=== PATIENT | male | born 1960 | race Caucasian/White ===

== ENCOUNTER 2017-04-25 08:49 | Day surgery (SDC) | payer OTHER ==
[~2017-04-25 08:49] MED LIST: Lactated Ringers 1,000 ML IV SCH
--- NOTE | 2017-04-25 09:45 | PCM.PREANE ---
Preanesthetic Assessment - Anesthesia/Transfusion/Family Hx Anesthesia History: Prior Anesthesia Without Reaction Family History of Anesthesia Reaction: No Transfusion History: No Prior Transfusion(s) Intubation History: Unknown - Review of Systems General: No Symptoms Pulmonary: No Symptoms Cardiovascular: No Symptoms Gastrointestinal: No Symptoms Neurological: No Symptoms Other: Reports: None - Physical Assessment NPO Status Date: 04/24/17 NPO Status Time: 22:00 O2 Sat by Pulse Oximetry: 97 Respiratory Rate: 16 Vital Signs: Last Vital Signs Temp 36.1 C 04/25/17 09:21 Pulse 100 04/25/17 09:21 Resp 16 04/25/17 09:21 BP 124/66 04/25/17 09:21 Pulse Ox 97 04/25/17 09:21 Height: 1.83 m Weight: 134.717 kg ASA Class: 3 Mental Status: Alert & Oriented x3 Airway Class: Mallampati = 2 Dentition: Reports: Normal Dentition Thyro-Mental Finger Breadths: 3 Mouth Opening Finger Breadths: 3 ROM/Head Extension: Full Lungs: Clear to Auscultation, Normal Respiratory Effort Cardiovascular: Regular Rate, Regular Rhythm - Allergies Allergies/Adverse Reactions: Allergies Allergy/AdvReac Type Severity Reaction Status Date / Time No Known Allergies Allergy Verified 03/19/17 08:39 - Blood Blood Available: No - Anesthesia Plan Pre-Op Medication Ordered: None - Acknowledgements Anesthesia Type Planned: MAC Pt an Appropriate Candidate for the Planned Anesthesia: Yes Alternatives and Risks of Anesthesia Discussed w Pt/Guardian: Yes Pt/Guardian Understands and Agrees with Anesthesia Plan: Yes PreAnesthesia Questionnaire Cardiovascular History: Reports: High Cholesterol, Hypertension Respiratory History: Reports: Sleep Apnea Other Respiratory History: uses CPAP Endocrine/Metabolic History: Reports: Diabetes, Type II, Obesity/BMI 30+ (BMI 40.3) - Past Surgical History Head Surgeries/Procedures: Reports: None Musculoskeletal Surgical History: Reports: Shoulder Surgery (rt. shoulder) - SUBSTANCE USE Smoking Status *Q: Never Smoker Recreational Drug Use History: No - HOME MEDS Home Medications: Home Meds Cetirizine [ZyrTEC] 10 mg PO ASDIRECTED PRN 03/19/17 [History] Gabapentin [Neurontin] 300 mg PO TID 03/19/17 [History] Hydrochlorothiazide 25 mg PO DAILY 03/19/17 [History] Ibuprofen 2 tab PO ASDIRECTED PRN 03/19/17 [History] Insulin Aspart [NovoLOG] 5 units SUBCUT ASDIRECTED 03/19/17 [History] Insulin Glarg,Human.Rec.Analog [LantUS Solostar] 35 units SUBCUT DAILY 03/19/17 [History] [place]-3 Fatty Acids/Fish Oil [Fish Oil 1,200 mg Softgel] 1 tab PO DAILY [History] atorvaSTATin Calcium [Atorvastatin Calcium] 20 mg PO DAILY 03/19/17 [History] glipiZIDE [Glipizide ER] 5 mg PO BID 03/19/17 [History] metFORMIN HCl [Metformin HCl] 1,000 mg PO BID 03/19/17 [History] - CURRENT (IN HOUSE) MEDS Current Meds: Current Medications Lactated Ringer's (Ringers, Lactated) 1,000 mls @ 125 mls/hr IV ASDIRECTED [facility] Last Admin: 04/25/17 09:16 Dose: 125 mls/hr Discontinued Medications Lactated Ringer's (Ringers, Lactated) 1,000 mls @ 125 mls/hr IV ASDIRECTED [facility]
[2017-04-25] MEDS ORDERED: Propofol 200 MG/20 ML SDV ONE ×3 (10:01→10:32)
[2017-04-25] MEDS ORDERED: Midazolam 1 MG/ML 2 ML SDV ONE (10:01)
[2017-04-25] MEDS ORDERED: fentaNYL 100 MCG/2 ML SDV ONE (10:01)
[2017-04-25] MEDS ORDERED: Lidocaine 2% 5 ML SDV ONE (10:01)
--- NOTE | 2017-04-25 10:52 | PCM.OPNOTE ---
- General Post-Op/Procedure Note Date of Surgery/Procedure: 04/25/17 Operative Procedure(s): Colonoscopy with snare rectal polypectomy and cold transverse colon and sigmoid colon polypectomies Pre Op Diagnosis: Desire for colorectal cancer screening. Personal history of diverticulosis with diverticulitis. Post-Op Diagnosis: Rectal sigmoid and transverse colon polyps. Pancolonic diverticulosis. Anesthesia Technique: MAC (ASA III) Primary Surgeon: Paul Barnard Condition: Good Free Text/Narrative:: Dictation [id number] CPT CODE [id number]
[2017-04-25] MEDS ORDERED: Lactated Ringers 1,000 ML IV SCH (11:00)
--- NOTE | 2017-04-25 13:21 | OR ---
SURGEON: Paul Barnard M.D. DATE OF PROCEDURE: 04/25/2017 OPERATION PERFORMED: Colonoscopy with snare rectal polypectomy and cold transverse colon and sigmoid colon polypectomies. ANESTHESIA: MAC. ASA CLASSIFICATION: III. PREOPERATIVE DIAGNOSES: 1. Desire for colorectal cancer screening. 2. Personal history of diverticulosis. POSTOPERATIVE DIAGNOSES: 1. Rectal polyp. 2. Sigmoid polyp. 3. Transverse colon polyp. 4. Diverticulosis. DESCRIPTION OF PROCEDURE: The patient was taken to the endoscopy room and positioned on the endoscopy table in the left lateral decubitus position. Time-out was called for appropriate identification of the patient and procedure. Monitored anesthesia care was provided. The colonoscope was inserted into the rectum and advanced with minimal difficulty to the cecum, where the colonoscope was retroflexed to visualize the ascending colon from below. The colonoscope was then straightened and slowly withdrawn. The patient does have colonic diverticular changes. The cecum, ascending colon, hepatic flexure were very well visualized. No tumors or polyps were encountered at that level. One polyp was encountered in the transverse colon and removed with the cold biopsy forceps. Minimal diverticular changes were noted in the transverse colon. Splenic flexure and descending colon showed no tumors, polyps, diverticula, or angiodysplastic changes. A second polyp was encountered in the sigmoid colon and again removed with the cold biopsy forceps. As the colonoscope was withdrawn to the rectum, a third polyp was encountered. This was removed with the snare electrocautery and recovered. No bleeding was noted. Once the colonoscope was withdrawn to the rectum, it was retroflexed to visualize the anal orifice from above. Again, no tumors or polyps were seen, and there were no acute hemorrhoidal changes. The colonoscope was then straightened, the rectum aspirated, and the colonoscope removed. The patient tolerated the procedure well and was taken to recovery room in stable condition. SHERRELL / JAVI /[id number]
== END 2017-04-25 11:25 | disposition home or self-care (01) ==
LOC: MW.SDS 08:49
PROVIDERS: ATTEND Surgery
DX: Z12.11 Encounter for screening for malignant neoplasm of colon (principal); K57.30 Diverticulosis of large intestine without perforation or abscess without bleeding; D12.5 Benign neoplasm of sigmoid colon; K62.1 Rectal polyp; D12.3 Benign neoplasm of transverse colon; I10 Essential (primary) hypertension; E11.9 Type 2 diabetes mellitus without complications; E66.9 Obesity, unspecified; E78.00 Pure hypercholesterolemia, unspecified; G47.30 Sleep apnea, unspecified; Z98.890 Other specified postprocedural states; Z79.899 Other long term (current) drug therapy; Z79.4 Long term (current) use of insulin; Z68.41 Body mass index [BMI] 40.0-44.9, adult
CPT/HCPCS: 45380; 45385; J2250; J3010; J7120; 00812; 82962; 88305; J2704

== ENCOUNTER 2018-11-02 09:27 | Emergency (ER) | payer OTHER ==
[2018-11-02] MEDS ORDERED: Sodium Chloride 0.9% 10 ML Syringe FLUSH PRN (09:56)
[2018-11-02] MEDS ORDERED: Sodium Chloride 0.9% 2.5 ML Syringe FLUSH PRN (09:56)
[2018-11-02] MEDS ORDERED: metroNIDAZOLE/Normal Saline 500 MG in Premix Bag 1 BAG IV ONE (09:56)
[2018-11-02] MEDS ORDERED: Morphine 2 MG/ML Syringe IVPUSH ONE (09:57)
[2018-11-02 11:05] LABS: CHLORIDE,CL 96 mmol/L (98-107); SODIUM,NA 132 mmol/L (136-148)
--- NOTE | 2018-11-02 11:31 | EDM.PDOC ---
ED HPI GENERAL MEDICAL PROBLEM - General Chief Complaint: General Stated Complaint: LUMP BY GROIN Time Seen by Provider: 11/02/18 11:00 - History of Present Illness INITIAL COMMENTS - FREE TEXT/NARRATIVE: 57 y/o male with history of DM2, presenting today for worsening left scrotal pain. Patient states he was seen at the [facility] about 1 week ago and prescribed antibiotics. He does not remember name of medication. State he took antibiotics but still no improvement. More painful and swollen. Subjective fevers. No dysuria, penile ulcers. No diarrhea or blood in stool. No history of STI's. No allergies. in the ER, he was started on Flagyl. CBC showed leukocytosis 15. Afebrile. Left Groin Pain Score (Numeric/FACES): 10 - Related Data Allergies Allergy/AdvReac Type Severity Reaction Status Date / Time No Known Allergies Allergy Verified 11/02/18 09:34 Home Meds: Home Meds Cetirizine [ZyrTEC] 10 mg PO ASDIRECTED PRN 03/19/17 [History] Gabapentin [Neurontin] 300 mg PO TID 03/19/17 [History] Hydrochlorothiazide 25 mg PO DAILY 03/19/17 [History] Ibuprofen 2 tab PO ASDIRECTED PRN 03/19/17 [History] Insulin Aspart [NovoLOG] 5 units SUBCUT ASDIRECTED 03/19/17 [History] Insulin Glarg,Human.Rec.Analog [LantUS Solostar] 35 units SUBCUT DAILY 03/19/17 [History] [place]-3 Fatty Acids/Fish Oil [Fish Oil 1,200 mg Softgel] 1 tab PO DAILY [History] atorvaSTATin Calcium [Atorvastatin Calcium] 20 mg PO DAILY 03/19/17 [History] glipiZIDE [Glipizide ER] 5 mg PO BID 03/19/17 [History] metFORMIN HCl [Metformin HCl] 1,000 mg PO BID 03/19/17 [History] Past Medical History Cardiovascular History: Reports: High Cholesterol, Hypertension Respiratory History: Reports: Sleep Apnea Other Respiratory History: uses CPAP Endocrine/Metabolic History: Reports: Diabetes, Type II, Obesity/BMI 30+ - Infectious Disease History Infectious Disease History: Reports: Chicken Pox - Past Surgical History Head Surgeries/Procedures: Reports: None Musculoskeletal Surgical History: Reports: Shoulder Surgery Social & Family History - Family History Family Medical History: Noncontributory - Tobacco Use Smoking Status *Q: Never Smoker - Caffeine Use Caffeine Use: Reports: None - Recreational Drug Use Recreational Drug Use: No ED ROS GENERAL - Review of Systems Review Of Systems: ROS reveals no pertinent complaints other than HPI. ED EXAM, GENERAL - Physical Exam Exam: See Below (Male) Exam: Other (left scrotall swelling, erythema, tender to touch with some mild serosanguaneous discharge. ) Course - Vital Signs Text/Narrative:: Spoke with Dr. Barnard at approximately 11 am. He suggested calling Urology. Spoke with Dr. Galo around 11:10 am. Discussed case with him. He recommended having the patient follow-up as outpatient in his clinic today at 1 pm. Transferred patient to [facility] ER. Accepting provider is Dr. Ramires. Last Recorded V/S: Last Vital Signs Temp 35.6 C 11/02/18 09:32 Pulse 101 H 11/02/18 09:32 Resp 24 H 11/02/18 09:32 BP 148/86 H 11/02/18 09:32 Pulse Ox 98 11/02/18 09:32 - Orders/Labs/Meds Orders: Active Orders 24 hr Category Date Time Status CULTURE BLOOD [BC] Stat Lab 11/02/18 12:03 Ordered CULTURE BLOOD [BC] Stat Lab 11/02/18 12:03 Ordered CULTURE WOUND [RM] Stat Lab 11/02/18 12:02 Ordered Sodium Chloride 0.9% [Saline Flush] Med 11/02/18 09:56 Active 10 ml FLUSH ASDIRECTED PRN Sodium Chloride 0.9% [Saline Flush] Med 11/02/18 09:56 Active 2.5 ml FLUSH ASDIRECTED PRN Blood Culture x2 Reflex Set [OM.PC] Stat Oth 11/02/18 12:03 Ordered Saline Lock Insert [OM.PC] Stat Oth 11/02/18 09:56 Ordered Medication Orders Sodium Chloride (Saline Flush) 10 ml FLUSH ASDIRECTED PRN PRN Reason: Keep Vein Open Sodium Chloride (Saline Flush) 2.5 ml FLUSH ASDIRECTED PRN PRN Reason: Keep Vein Open Labs: Laboratory Tests 11/02/18 11/02/18 11/02/18 Range/Units 10:17 10:17 11:57 WBC 15.69 H (4.0-11.0) K/uL RBC 4.90 (4.50-5.90) M/uL Hgb 13.3 (13.0-17.0) g/dL Hct 40.8 (38.0-50.0) % MCV 83.3 (80.0-98.0) fL MCH 27.1 (27.0-32.0) pg MCHC 32.6 (31.0-37.0) g/dL RDW Std Deviation 45.4 (28.0-62.0) fl RDW Coeff of Abel 15 (11.0-15.0) % Plt Count 295 (150-400) K/uL MPV 10.60 (7.40-12.00) fL Neut % (Auto) 83.7 H (48.0-80.0) % Lymph % (Auto) 7.3 L (16.0-40.0) % [place] % (Auto) 8.5 (0.0-15.0) % Eos % (Auto) 0.4 (0.0-7.0) % Baso % (Auto) 0.1 (0.0-1.5) % Neut # (Auto) 13.1 H (1.4-5.7) K/uL Lymph # (Auto) 1.1 (0.6-2.4) K/uL [place] # (Auto) 1.3 H (0.0-0.8) K/uL Eos # (Auto) 0.1 (0.0-0.7) K/uL Baso # (Auto) 0.0 (0.0-0.1) K/uL Nucleated RBC % 0.0 /100WBC Nucleated RBCs # 0 K/uL Lactate 1.6 (0.20-2.00) mmol/L Sodium 132 L (136-148) mmol/L Potassium 3.8 (3.5-5.1) mmol/L Chloride 96 L (98-107) mmol/L Carbon Dioxide 23.4 (21.0-32.0) mmol/L BUN 30 H (7.0-18.0) mg/dL Creatinine 1.2 (0.8-1.3) mg/dL Est Cr Clr Drug Dosing 75.44 mL/min Estimated GFR (MDRD) > 60.0 ml/min Glucose 269 H (74-106) mg/dL Calcium 9.3 (8.5-10.1) mg/dL Total Bilirubin 2.3 H (0.2-1.0) mg/dL AST 7 L (15-37) IU/L ALT 16 (14-63) IU/L Alkaline Phosphatase 103 (46-116) U/L Total Protein 7.6 (6.4-8.2) g/dL Albumin 3.4 (3.4-5.0) g/dL Globulin 4.2 H (2.6-4.0) g/dL Albumin/Globulin Ratio 0.8 L (0.9-1.6) Meds: Medications Generic Name Dose Route Start Last Admin Trade Name Freq PRN Reason Stop Dose Admin Sodium Chloride 10 ml 11/02/18 09:56 Saline Flush FLUSH ASDIRECTED PRN Keep Vein Open Sodium Chloride 2.5 ml 11/02/18 09:56 Saline Flush FLUSH ASDIRECTED PRN Keep Vein Open Discontinued Medications Generic Name Dose Route Start Last Admin Trade Name Freq PRN Reason Stop Dose Admin Metronidazole 500 mg/ Premix 100 mls @ 100 mls/hr 11/02/18 09:56 11/02/18 11: 55 IV 11/02/18 10:55 100 mls/hr ONETIME ONE Administration Morphine Sulfate 2 mg 11/02/18 09:57 11/02/18 10:30 Morphine IVPUSH 11/02/18 09:58 2 mg ONETIME ONE Administration Departure - Departure Time of Disposition: 12:09 Disposition: DC/Tfer to [facility] 02 Clinical Impression: Scrotal abscess - Discharge Information *PRESCRIPTION DRUG MONITORING PROGRAM REVIEWED*: Not Applicable *COPY OF PRESCRIPTION DRUG MONITORING REPORT IN PATIENT JAYNE: Not Applicable Referrals: PCP,None [Primary Care Provider] - Forms: ED Department Discharge - My Orders Last 24 Hours: My Active Orders 11/02/18 09:56 Sodium Chloride 0.9% [Saline Flush] 10 ml FLUSH ASDIRECTED PRN Sodium Chloride 0.9% [Saline Flush] 2.5 ml FLUSH ASDIRECTED PRN Saline Lock Insert [OM.PC] Stat 11/02/18 12:02 CULTURE WOUND [RM] Stat 11/02/18 12:03 CULTURE BLOOD [BC] Stat CULTURE BLOOD [BC] Stat Blood Culture x2 Reflex Set [OM.PC] Stat - Assessment/Plan Last 24 Hours: My Active Orders 11/02/18 09:56 Sodium Chloride 0.9% [Saline Flush] 10 ml FLUSH ASDIRECTED PRN Sodium Chloride 0.9% [Saline Flush] 2.5 ml FLUSH ASDIRECTED PRN Saline Lock Insert [OM.PC] Stat 11/02/18 12:02 CULTURE WOUND [RM] Stat 11/02/18 12:03 CULTURE BLOOD [BC] Stat CULTURE BLOOD [BC] Stat Blood Culture x2 Reflex Set [OM.PC] Stat
--- NOTE | 2018-11-02 11:48 | US ---
EXAMINATION: Scrotal duplex ultrasound HISTORY: Mass or abscess COMPARISON: None TECHNIQUE: Grayscale, color Doppler, and spectral Doppler imaging obtained. FINDINGS: Both the left and right testicles are normal in size, contour, and echogenicity demonstrating normal color and spectral Doppler flow. No testicular mass. Epididymides appear normal. No significant varicocele or hydrocele. There is a heterogeneous collection noted superior to the left scrotum demonstrated measuring roughly 4.5 x 2.3 x 2.7 cm. This demonstrates mildly increased peripheral flow with possibly mild internal color Doppler flow. Mild overlying scrotal wall thickening. IMPRESSION: 1. Heterogeneous 4.5 x 2.7 cm collection noted within the region of concern superior to the left scrotum. This may represent an underlying mass, abscess or hematoma is not excluded. However additionally this could represent a hernia of intra-abdominal contents. Correlation with a CT with contrast may be beneficial.
[2018-11-02] MEDS ORDERED: HYDROmorphone 1 MG/ML Syringe IVPUSH STA (12:17)
== END 2018-11-02 13:25 ==
LOC: MW.ED 09:27
DX: N49.2 Inflammatory disorders of scrotum (principal); E11.9 Type 2 diabetes mellitus without complications; I10 Essential (primary) hypertension; Z79.84 Long term (current) use of oral hypoglycemic drugs; E78.00 Pure hypercholesterolemia, unspecified; Z79.899 Other long term (current) drug therapy
CPT/HCPCS: 36415; 76870; 80053; 83605; 85025; 87040; 87070; 93976; 96365; 96375; 99285; A4217; J2270; J3490